=== PATIENT | male | born 1975 | race Caucasian/White ===

== ENCOUNTER 2023-08-04 10:42 | Emergency (ER) | payer MEDICAID ==
[~2023-08-04] VITALS: Ht 170.2 cm; Wt 120.0 kg
[2023-08-04 10:48] VITALS: O2SAT 100
[2023-08-04] MEDS ORDERED: MECLIZINE 25MG TABLET PO ONE (11:15)
[2023-08-04] MEDS: MECLIZINE 12.5MG TABLET PO NR (11:47)
[2023-08-04] MEDS: KETOROLAC 60MG/2ML VIAL IM ONE (11:47)
[2023-08-04] MEDS ORDERED: MECL-299 MT (13:38)
[2023-08-04 14:11] VITALS: BP 129/86; PULSE 65; RESP 15; TEMP 98.5
== END 2023-08-04 14:17 | disposition home or self-care (01) ==
LOC: ER 10:42
DX: R42 Dizziness and giddiness (principal); R51.9 Headache, unspecified
CPT/HCPCS: 99284; 70450; 93005; J8597